=== PATIENT | female | born 1965 | race Caucasian/White ===

== ENCOUNTER → 2016-05-14 | Outpatient (CLI) | payer MEDICARE, BC ==
[~2016-05-14] MED LIST: ACET-818 PO; AMLO-147 PO; ATEN-51 PO; CHOL100062 PO; CLON-379 PO; LANT3I SC; NEPH PO; NOVO3I SC; PRA20 PO
--- NOTE | 2016-05-14 10:09 | RADRPT ---
PROCEDURE: XR Chest. CLINICAL INDICATION: Cough and shortness of breath. TECHNIQUE: Two views. Frontal and lateral. COMPARISON: 02/15/2016. FINDINGS: There is a tunneled left internal jugular vein dialysis catheter with the tip in the mid superior ve na cava. The lungs are clear. The heart size is normal. There is no pleural effusion. There is no pneumothorax. IMPRESSION: 1. Tunneled left internal jugular vein dialysis catheter. 2. Clear lungs. RPTAT: QQ .Frandy Henry MD, MD Date Time Electronically viewed and signed by .Frandy Henry MD, MD on 05/14/2016 10:08 .R/
== END | disposition home or self-care (01) ==
LOC: RAD 09:31
PROVIDERS: ATTEND Internal Medicine Nephrology
DX: R06.02 Shortness of breath (principal); R05 Cough
CPT/HCPCS: 71020

== ENCOUNTER 2016-07-17 05:22 | Day surgery (SDC) | payer MEDICARE, BC ==
[2016-07-09 10:00] LABS: ADD SCAN DIFF NO
[2016-07-09 10:13] LABS: BASOPHIL # 0.1 10^3/ul (0.0-0.1); BASOPHILS % 0.5 % (0.0-2.0); EOSINOPHILS # 0.3 10^3/ul (0.0-0.5); EOSINOPHILS % 2.6 % (0.0-7.0); HEMOGLOBIN 10.5 g/dl (12.0-16.0); LYMPHOCYTES # 3.3 10^3/ul (0.8-2.9); LYMPHOCYTES % 28.6 % (15.0-51.0); MEAN CORPUSCULAR HEMOGLOBIN 32.1 pg (29.0-33.0); MEAN CORPUSCULAR VOLUME 91.7 fl (82.0-101.0); MEAN PLATELET VOLUME 12.6 fl (7.4-10.4); MONOCYTE # 0.9 10^3/ul (0.3-0.9); MONOCYTES % 7.4 % (0.0-11.0); NEUTROPHIL # 7.1 10^3/ul (1.6-7.5); NEUTROPHILS % 60.5 % (39.0-77.0); PLATELET COUNT 222 10^3/UL (140-415); RED BLOOD COUNT 3.27 10^6/ul (4.20-5.40); RED CELL DISTRIBUTION WIDTH 12.6 % (11.5-14.5); WHITE BLOOD COUNT 11.7 10^3/ul (4.8-10.8)
[2016-07-09 10:22] LABS: INR 0.86; POTASSIUM 5.8 mmol/L (3.5-5.1); PROTIME 11.7 Sec (12.2-14.2); PT RATIO 0.9
[2016-07-09 10:47] LABS: CALCIUM 10.2 mg/dl (8.4-10.2); CREATININE 8.98 mg/dl (0.44-1.00)
--- NOTE | 2016-07-09 10:59 | RADRPT ---
PROCEDURE: XR Chest. CLINICAL INDICATION: Preop chest x-ray 11/1952 year-old female. TECHNIQUE: Single frontal view of the chest was obtained COMPARISON: Chest x-ray 05/14/2016. FINDINGS: The soft tissues are normal. A hemodialysis catheter remains in place with its tip in the superior vena cava. The heart, cardiomediastinal silhouette, pulmonary vasculature and hilar structures are normal. There is a left-sided aorta. The lungs are clear. The costophrenic angles are normal. IMPRESSION: 1. Stable chest x-ray with no evidence of active cardiopulmonary disease. 2. Hemodialysis catheter with its tip in the superior vena cava. RPTAT:AAJJ Physician Adrienne Date Time Electronically viewed and signed by Tej Giraldo Physician on 07/09/2016 10:59 JM/
--- NOTE | 2016-07-11 19:11 | RADRPT ---
Vent Rate: 65 bpm RR Interval: 0 msec WV Interval: 172 msec QRS Duration: 84 msec QT Interval: 450 msec QTC Interval: 468 msec P-R-T Watson: 36 - 9 - 70 degrees Normal sinus rhythm Cannot rule out Anterior infarct , age undetermined Abnormal ECG Electronically Signed By: Gerald Richardson [id number]
[2016-07-16 10:01] VITALS: BMI 31.4
[~2016-07-17] VITALS: Ht 157.5 cm; Wt 75.1 kg
[2016-07-17] VITALS (10 sets, daily range): BP systolic 93–142; BP diastolic 45–71; PULSE 62–68; RESP 8–20; Ht 157.5 cm; Wt 75.1 kg
[~2016-07-17 05:22] MED LIST changes: -ACET-818 PO; +ACET325T33 PO; +CALC300T4 PO; +CALC600T11 PO; +CYCL-319 PO; +LORA5TAB4 PO; -NEPH PO
[2016-07-17] MEDS ORDERED: VANCOMYCIN 1 GM (PMX) 250 ML ONE (06:08)
[2016-07-17] MEDS ORDERED: INSULIN REGULAR, HUMAN 100 UNIT/1 ML 3ML VIAL IV ONE (06:25)
[2016-07-17] MEDS ORDERED: VANCOMYCIN 1 GM in NS 250 ML IVPB SCH (06:30)
[2016-07-17] MEDS ORDERED: GELATIN SIZE 100 SPONGE ONE (06:45)
[2016-07-17] MEDS ORDERED: LIDOCAINE 1% (STERILE-PAK) 30 ML INJ ONE (06:45)
[2016-07-17] MEDS ORDERED: THROMBIN 5000 UNIT VIAL ONE (06:46)
[2016-07-17] MEDS ORDERED: HEPARIN 1000 UNITS/ML 10 ML INJ ONE (06:46)
[2016-07-17 07:11] LABS: INR 0.86; PROTIME 11.7 Sec (12.2-14.2); PT RATIO 0.9
[2016-07-17 07:12] LABS: PARTIAL THROMBOPLASTIN TIME 26.1 Sec (25.0-35.0)
[2016-07-17] MEDS ORDERED: MIDAZOLAM 1 MG/ML 2 ML INJ ONE (07:21)
[2016-07-17] MEDS ORDERED: CEFAZOLIN 1 GM INJ ONE (07:21)
[2016-07-17] MEDS ORDERED: PROPOFOL 20 ML ONE ×3 (07:21→09:36)
[2016-07-17] MEDS ORDERED: FENTAnyl 50 MCG/ML VIAL ONE (07:21)
[2016-07-17] MEDS ORDERED: ROPIVACAINE 0.5 % 30 ML VIAL ONE (07:23)
[2016-07-17] MEDS ORDERED: ONDANSETRON 4 MG INJ IV PRN (09:00)
[2016-07-17] MEDS ORDERED: morphine (1 MG/ML) 10ML SYRINGE IV PRN ×3 (09:00)
[2016-07-17] MEDS ORDERED: EPHEDrine SULFATE 50 MG/5 ML SYG IV PRN (09:00)
[2016-07-17] MEDS ORDERED: LABETALOL HCL 20MG INJ IV PRN (09:00)
[2016-07-17] MEDS ORDERED: DIPHENHYDRAMINE 50 MG INJ IV PRN (09:00)
[2016-07-17] MEDS ORDERED: hydrALAzine 20 MG INJ IV PRN (09:00)
[2016-07-17] MEDS ORDERED: MEPERIDINE 25 MG INJ IV PRN (09:00)
[2016-07-17] MEDS ORDERED: HYDROmorphONE (0.2 MG/ML) 10ML SYG IV PRN ×3 (09:00)
[2016-07-17] MEDS ORDERED: POLYMYXIN/BACITRACIN 1L IRRIG IRR ONE (09:15)
[2016-07-17] MEDS ORDERED: HEMOSTATIC MATRIX/ THROMBIN 1 EA SYG ZFS ONE (09:15)
[2016-07-17] MEDS ORDERED: GELATIN SIZE 100 SPONGE TOP ONE (09:16)
[2016-07-17] MEDS ORDERED: ONDANSETRON 4 MG INJ ONE (10:15)
[2016-07-17] MEDS ORDERED: METOCLOPRAMIDE 10 MG INJ ONE (10:15)
--- NOTE | 2016-07-17 10:58 | PDOCDIS ---
Discharge Instructions DIAGNOSIS Discharge Diagnosis: ESRD CONDITION Patient Condition: Good HOME CARE INSTRUCTIONS: Special Diet: RENAL DIET ACTIVITY: Activity Restrictions: Slowly Increase Activity Rest between Activity Avoid heavy lifting Do not Drive Do not operate Machinery Do not operate Power Tool Avoid Heavy Housework Keep Limb Elevated FOLLOW UP/APPOINTMENTS Appointments FOLLOWUP WITH ANT[facility] IN 2 WEEKS AT [facility] MAY REMOVE DRESSING IN 72HOURS AND SHOWER AT THAT TIME. NO BATHING OR SWIMMING HAVE HOME HEALTH [facility] REMEDY SEE PATIENT IN TWO TO THREE DAYS [phone] MAY REMOVE THE ARM SLING IN 8-10 HOURS WHEN PATIENT CAN FEEL HER FINGERTIPS AND MOVE THEM KAVIN BERMAN MD Jul 17, 2016 10:58
--- NOTE | 2016-07-17 11:24 | HPN ---
Date/Time of Note Date/Time of Note DATE: 07/17/16 TIME: 11:24 Interval H&P Admission Note Pt. seen H&P reviewed: No system changes KAVIN BERMAN MD Jul 17, 2016 11:24
--- NOTE | 2016-07-17 11:33 | OPR ---
DATE OF OPERATION: 07/17/2016 SURGEON: Kavin Kramer MD PREOPERATIVE DIAGNOSIS: End-stage renal disease. POSTOPERATIVE DIAGNOSIS: End-stage renal disease. PROCEDURE: Creation of a left arm brachio-axillary arteriovenous xenograft (cow carotid - model [id number] [id number], 7 mm, 48 cm) creation. ANESTHESIA: Local and block. COMPLICATIONS: None. ESTIMATED BLOOD LOSS: 50 mL. TRANSFUSIONS: None. SPECIMEN: None. Heparin 3000 units. INDICATIONS: This is a 50-year-old female with end-stage renal disease with history of multiple lef t arm AV fistula creations. The patient currently has a left chest wall catheter. The risks and be nefits of the procedure were discussed with the patient and not limited to , [place] and pneumonia, stroke, infection, thrombosis of the graft and arterial access, revisions of AV fistula, steal syndr ome, and the limb loss, nerve injury and she elected to undergo surgical intervention. DESCRIPTION OF PROCEDURE: The patient was brought into the operating room table and placed in supin e position. The arms were placed in 90 degrees. The normal bony prominences were padded. Anesthes ia team had placed appropriate lines and a block was provided. Time out was performed. Appropriate site was marked and confirmed. The patient's left upper extremity was then prepped and draped in t he usual standard sterile fashion. Preoperative antibiotics were given prior to the skin incision. A 5 cm skin incision was then performed over the medial aspect of the upper arm towards axilla. The incision was deepened through the subcutaneous tissue and fat. The brachial and axillary vein were then identified and circumferentially dissected and encircled with a vessel loop. A 4 cm segment o f the axillary vein was circumferentially dissected. A 3 cm longitudinal incision was then performe d above the antecubital fossa. The aponeurosis of the biceps muscle was incised and the brachial ar yandy was palpated and its location was determined. The soft tissues over the brachial artery were t hen incised and the brachial artery was circumferentially dissected and encircled with a vessel loop . A 3 cm segment of the brachial artery was then circumferentially dissected. The curved [place] t unneler was then used to create a subcutaneous tunnel connecting the incisions and antecubital fossa to the incision of the axilla. The tunnel was created in the anterolateral aspect of the upper arm to facility puncture site for dialysis. The patient was then given 3000 units of heparin intraveno usly. Yasargil clamps were then applied on the brachial artery and a 6 mm incision was then perform ed in the anterior wall of the brachial artery. The end of the xenograft was tapered on the back ta ble prior to our clamping to measure 4 mm. Therefore, we tapered the graft to a 4/7 xenograft desig n. At this point, we performed an anastomosis using a 6-0 Prolene running suture. The forward and backbleeding from the brachial artery was then performed. Anastomosis was then irrigated with hepar inized saline solution. The sutures were then tied and the anastomosis was checked for hemostasis w hich was adequate. Flow was then allowed to resume through the brachial artery. The xenograft was then introduced in the tunnel distended, avoiding any kinks and twists. Attention was then directed towards the axillary vein. The axillary vein was then controlled with the Yasargil clamps and a 1 cm incision was then created in the vein. The xenograft was then measured to length and was transec rere in an oblique fashion to match the size of the venotomy. Anastomosis was then created between t he end of the PTFE graft and the venotomy using a 5-0 Prolene in running suture. At the completion of the anastomosis, back bleeding from the venous side and forward bleeding from the graft were perf ormed. The suture was then tied and anastomosis was checked for hemostasis which was adequate. Khadar w was then allowed in the arteriovenous graft. There was evidence of excellent thrill in the graft and adequate dopplerable signals were identified. There was also evidence of palpable pulses in the radial artery at the wrist. The suture lines were then checked for hemostasis which was adequate. Using a 3-0 Vicryl suture, the dermal layer was closed in interrupted fashion. The skin ana we re then applied. The patient tolerated procedure well and was taken to the postanesthesia care unit in stable condition. All instrument, sponges, needles, catheters were correct x2. Dictated By: KAVIN BOSS/DANISH Conf#: [id number] DID#: [id number]
== END 2016-07-17 12:35 | disposition home or self-care (01) ==
LOC: SDS 05:22
PROVIDERS: ATTEND Student in an Organized Health Care Education/Training Program
DX: I12.0 Hypertensive chronic kidney disease with stage 5 chronic kidney disease or end stage renal disease (principal); N18.6 End stage renal disease; E11.9 Type 2 diabetes mellitus without complications
CPT/HCPCS: 36830; 71010; 80048; 82962; 84132; 84703; 85025; 85610; 85730; 93005; J1170; J1644; J2250; J2795; J3010; J3370; J0690; J2405; J2765

== ENCOUNTER 2017-03-20 16:19 | Emergency (ER) | payer MEDICARE, BC ==
[~2017-03-20] VITALS: Ht 157.5 cm; Wt 77.0 kg
[~2017-03-20 16:19] MED LIST changes: -CALC600T11 PO; +CALC600T24 PO; -PRA20 PO; +PRAV20TA2 PO
[2017-03-20 16:24] VITALS: Ht 157.5 cm; Wt 77.0 kg
--- NOTE | 2017-03-20 17:10 | ERD ---
ER Documentation Chief Complaint Chief Complaint RIGHT GREAT TOE REDNESS TODAY, CALLUS X 2 WEEKS, DIABETIC PATIENT HPI This 51 yr DM female with diabetic neuropathy lateral feet, loss of vision in right eye,, present to ED for evaluation of right foot , great toe inner accept of toe with thick black blister , symptoms x 2 weeks, BS this AM 140, last saw internal communications writer 6 months ago , has an appointment in March, pt has ESRF, HD //Sat. left upper AV fistula, ROS All systems reviewed and are negative except as per history of present illness. Medications Home Meds Active Scripts Clindamycin Hcl* (Clindamycin Hcl*) 300 Mg Capsule, 300 MG PO QID for ulcer for 10 Days, CAP Prov:DONGNGA 03/20/17 Insulin Glargine* (Lantus*) 100 Unit/Ml Soln, 20 UNIT SC QAM for 28 Days Prov:DANTE COTTON MD 02/15/16 Insulin Aspart* (Novolog Insulin Pen*) 100 Unit/Ml Soln, 6 UNIT SC WITH MEALS for 28 Days Prov:DANTE COTTON MD 02/15/16 Clonidine Hcl* (Clonidine Hcl*) 0.1 Mg Tab, 0.1 MG PO TID for 270 Days Prov:CHAZ HERNANDEZ MD 07/08/15 Reported Medications Insulin Glargine* (Lantus*) 100 Unit/Ml Soln, 30 UNIT SC HS, #1 VIAL 07/16/16 Insulin Glargine* (Lantus*) 100 Unit/Ml Soln, 45 UNIT SC AC BREAKFAST, #1 VIAL 07/16/16 Acetaminophen* (Tylenol*) 325 Mg Tablet, 650 MG PO Q4H Y for MILD PAIN LEVEL 1-3 , TAB 07/16/16 Loratadine* (Claritin*) 5 Mg Tab.rapdis, 5 MG PO DAILY, #30 TAB 07/16/16 Calcium Carbonate* (Tums X-Str) 300 Mg Tab.chew, 3 TAB PO AC MEALS, TAB.CHEW 07/16/16 Atenolol* (Atenolol*) 25 Mg Tablet, 25 MG PO DAILY, #30 TAB 07/16/16 Cholecalciferol* (Vitamin D3*) 1,000 Unit Tablet, 2000 UNIT PO DAILY, TAB 07/16/16 Calcium Carbonate* (Calcium Carbonate*) 600 MG Ca Tab, 600 MG PO DAILY, TAB 07/16/16 Cyclobenzaprine Hcl* (Cyclobenzaprine Hcl*) 10 Mg Tablet, 10 MG PO Q8 Y for MUSCLE SPASMS, #60 TAB 07/16/16 Amlodipine Besylate* (Amlodipine Besylate*) 10 Mg Tablet, 10 MG PO DAILY, #30 TAB 02/11/16 Atenolol* (Atenolol*) 25 Mg Tablet, 25 MG PO BID, TAB 03/02/14 Cholecalciferol* (Vitamin D3*) 1,000 Unit Tablet, 1000 UNIT PO DAILY, TAB 03/02/14 Pravastatin Sodium (Pravastatin Sodium) 20 Mg Tablet, 20 MG PO DAILY 07/15/12 Allergies Allergies: Coded Allergies: No Known Allergy (Unverified , 02/11/16) PMhx/Soc History of Surgery: Yes (CSECTION, AVF, RIGHT EYE) Anesthesia Reaction: No Hx Neurological Disorder: No Hx Respiratory Disorders: No Hx Cardiac Disorders: Yes (HTN) Hx Psychiatric Problems: No Hx Miscellaneous Medical Probl: No Hx Alcohol Use: No Hx Substance Use: No Hx Tobacco Use: No Physical Exam Vitals Vital Signs Date Time Temp Pulse Resp B/P Pulse Ox O2 Delivery O2 Flow Rate FiO2 03/20/17 16:24 98.7 74 18 166/74 99 Vitals stable, triage notes reviewed, blood pressure is noted to be 166/74 Physical Exam Const: Well-nourished 51-year-old female with multiple comorbidities, no acute distress Head: Atraumatic Eyes: Normal Conjunctiva, patient is blind in right eye, ENT: Neck: Resp: Clear to auscultation bilaterally no rales wheezes or rhonchi Cardio: Regular rate and rhythm, no murmurs, left upper arm presents with AV fistula, good bruit and thrill, distal from fistula is old hemodialysis site, skin intact, no edema or erythema. Abd: Skin: Right foot great toe presents with black thick ulcer inner aspect, ulcer is oval-shaped, 2 cm x 1 cm, patient has abnormal sensation, reports diabetic neuropathy Back: Ext: Neur: Awake and alert Psych: Normal Mood and Affect Result Diagram: 03/20/17 4491 03/20/17 4335 Results 24 hrs Laboratory Tests Test 03/20/17 17:53 11/22/17 18:35 Bedside Glucose 194mg/dL White Blood Count 12.110^3/ul Red Blood Count 3.3910^6/ul Hemoglobin 10.9g/dl Hematocrit 32.6% Mean Corpuscular Volume 96.2fl Mean Corpuscular Hemoglobin 32.2pg Mean Corpuscular Hemoglobin Concent 33.4g/dl Red Cell Distribution Width 13.0% Platelet Count 64271^3/UL Mean Platelet Volume 11.5fl Neutrophils % 71.1% Lymphocytes % 20.4% Monocytes % 6.6% Eosinophils % 0.8% Basophils % 0.4% Nucleated Red Blood Cells % 0.0/100WBC Neutrophils # 8.610^3/ul Lymphocytes # 2.510^3/ul Monocytes # 0.810^3/ul Eosinophils # 0.110^3/ul Basophils # 0.110^3/ul Nucleated Red Blood Cells # 0.010^3/ul Sodium Level 135mmol/L Potassium Level 5.3mmol/L Chloride Level 91mmol/L Carbon Dioxide Level 25mmol/L Anion Gap 24 Blood Urea Nitrogen 50mg/dl Creatinine 8.49mg/dl Glucose Level 200mg/dl Lactic Acid Level 1.0mmol/L Calcium Level 9.0mg/dl Total Bilirubin 0.0mg/dl Direct Bilirubin 0.00mg/dl Indirect Bilirubin 0.0mg/dl Aspartate Amino Transf (AST/SGOT) 26IU/L Alanine Aminotransferase (ALT/SGPT) 27IU/L Alkaline Phosphatase 179IU/L Total Protein 8.5g/dl Albumin 4.5g/dl Globulin 4.00g/dl Albumin/Globulin Ratio 1.12 Interpretation text CBC shows no evidence of hemorrhage WBC elevated at 12.1. Chemistry shows no evidence of significant electrolyte abnormalities, capillary blood glucose is 194, serum blood glucose is 200. Patient has abnormally high BUN and creatinine, patient has end-stage renal failure this is not a significant finding. Liver function tests shows no evidence of acute biliary or hepatic dysfunctionlpathy Lipase shows no evidence of acute pancreatitis Procedures/MDM PROCEDURE: X-ray right foot CLINICAL INDICATION: Soft tissue lesion at the medial aspect of the distal right great toe. TECHNIQUE: 3 views right foot. COMPARISON: None FINDINGS: Soft tissue lesion over the medial aspect of the distal right great toe. No definite plain film evidence of osteomyelitis. Recommend MRI examination for more sensitive and specific evaluation. Question mild erosion of gout at the medial aspect of the head of the first proximal phalanx. Remote fracture at the proximal metaphysis of the fifth proximal phalanx. Degenerative changes at the first tarsometatarsal joint, with dorsal osteophyte. IMPRESSION: No plain film evidence of osteomyelitis in region of soft tissue lesion, and recommend MRI correlation. Electronically viewed and signed by Tessa Gan Physician on 03/20/2017 18:12 This 51-year-old female presents to emergency department for evaluation of a diabetic ulcer on her right great toe, patient reports symptoms 2 weeks, denies pain history of neuropathy, patient also is end-stage renal failure on hemodialysis, states she sees her internal communications writer every 6 months, she will see her physician in March. Patient reports that glucose is moderately controlled. Fingerstick ordered, capillary blood glucose is 194, I do not feel it is necessary to start IV fluids, ordered end-stage renal failure. Patient is anuric, a urinalysis is not possible. Plan to x-ray patient's right foot rule out osteomyelitis, routine labs to evaluate infection, sepsis, DKA.. EEG positive for elevated WBCs, BUN and creatinine elevated, patient is end- stage renal failure this is not a significant finding, diabetic on medication fingerstick 194, serology is 200. X-ray of right foot shows no evidence of osteomyelitis. Plan to treat patient with clindamycin,, no adjustment needed for hemodialysis or peritoneal dialysis. Patient will receive 300 mg p.o. now. DC home with clindamycin 300 mg 4 times daily 10 days, patient will be sent to amputation center evaluation and treatment. Take medication as prescribed, continue all routine medication prescribed by other providers. Follow-up with primary physician this week. Patient is stable with no new complaints during ER course, clinically there is no current evidence to suggest meningitis, sepsis , cellulitis, osteomyelitis, compartment syndrome, necrotizing fasciitis or any other emergent condition appearing to require further evaluation or hospitalization. I feel the patient is stable for discharge at this time. I have discussed results, examination findings, the treatment plan with the patient and family present prior to discharge. Indications for emergent reevaluation, side effects of medication were also discussed. All questions were answered. Patient verbalizes understanding and agrees with plan of care. Departure Diagnosis: Primary Impression: Diabetic foot ulcer Diabetic foot ulcer location: toe Diabetes mellitus type: type 2 Laterality : right Non-pressure ulcer stage: with necrosis of muscle Qualified Code: E11.621 - Diabetic ulcer of toe of right foot associated with type 2 diabetes mellitus, with necrosis of muscle Condition: Good Patient Instructions: Diabetic Foot Care, Diabetic Foot Ulcers Referrals: [facility] Additional Instructions: Thank you for for coming to [facility] for your care today. Please ask your nurse or provider if you have questions about your care today and do not leave until all your questions have been answered. Please use any medications given as directed and follow-up with your doctor (or the doctor you were referred to) in the next 2-3 days. If you do not have a primary care doctor you may [place] [facility] [place] You may also use motrin and tylenol as needed for fever and/or pain unless instructed otherwise by your provider or nurse. Indications for more urgent follow-up have been discussed, but you may return to the Emergency Department at ANY time for any worrisome or worsening symptoms. If you have abdominal pain, please know that no test or exam you received is perfect and you should follow up within 8 hours for continued pain. If you had any imaging studies today, such as an X-Ray or CT Scan, these studies will be reviewed later by a radiologist. You will be called if there are important findings that were not identified today, so make sure the contact information you provided at registration is correct. If you received any narcotic pain control medicine today, such as Vicodin, Morphine or Dilaudid, your coordination and judgment may be affected for a number of hours. Please do not drive or operate heavy machinery, and you may want someone to assist you at home. If you were given a prescription for narcotic medication, be aware that it is very addictive- use sparingly and only if necessary. NAG UMANA Mar 20, 2017 17:10
--- NOTE | 2017-03-20 18:12 | RADRPT ---
PROCEDURE: X-ray right foot CLINICAL INDICATION: Soft tissue lesion at the medial aspect of the distal right great toe. TECHNIQUE: 3 views right foot. COMPARISON: None FINDINGS: Soft tissue lesion over the medial aspect of the distal right great toe. No definite plain film evid ence of osteomyelitis. Recommend MRI examination for more sensitive and specific evaluation. Questio n mild erosion of gout at the medial aspect of the head of the first proximal phalanx. Remote fractu re at the proximal metaphysis of the fifth proximal phalanx. Degenerative changes at the first tarso metatarsal joint, with dorsal osteophyte. IMPRESSION: No plain film evidence of osteomyelitis in region of soft tissue lesion, and recommend MRI correlati on. RPTAT: [facility]U Physician Magdaleno Date Time Electronically viewed and signed by Physician Magdaleno on 03/20/2017 18:12 RS/
[2017-03-20 18:57] LABS: BASOPHIL # 0.1 10^3/ul (0.0-0.1); BASOPHILS % 0.4 % (0.0-2.0); EOSINOPHILS # 0.1 10^3/ul (0.0-0.5); EOSINOPHILS % 0.8 % (0.0-7.0); HEMATOCRIT 32.6 % (37.0-47.0); HEMOGLOBIN 10.9 g/dl (12.0-16.0); LYMPHOCYTES # 2.5 10^3/ul (0.8-2.9); LYMPHOCYTES % 20.4 % (15.0-51.0); MEAN CORPUSCULAR HEMOGLOBIN 32.2 pg (29.0-33.0); MEAN CORPUSCULAR HGB CONC 33.4 g/dl (32.0-37.0); MEAN CORPUSCULAR VOLUME 96.2 fl (82.0-101.0); MEAN PLATELET VOLUME 11.5 fl (7.4-10.4); MONOCYTE # 0.8 10^3/ul (0.3-0.9); MONOCYTES % 6.6 % (0.0-11.0); NEUTROPHIL # 8.6 10^3/ul (1.6-7.5); NEUTROPHILS % 71.1 % (39.0-77.0); PLATELET COUNT 256 10^3/UL (140-415); RED BLOOD COUNT 3.39 10^6/ul (4.20-5.40); WHITE BLOOD COUNT 12.1 10^3/ul (4.8-10.8)
[2017-03-20 19:17] LABS: ALBUMIN 4.5 g/dl (3.3-4.9); ALBUMIN/GLOBULIN RATIO 1.12; CREATININE 8.49 mg/dl (0.44-1.00); POTASSIUM 5.3 mmol/L (3.5-5.1); TOTAL PROTEIN 8.5 g/dl (6.1-8.1)
[2017-03-20] MEDS ORDERED: CLIN-73 PO (20:16)
[2017-03-20] MEDS ORDERED: CLINDAMYCIN 300 MG CAP PO ONE (20:30)
[2017-03-20 20:38] VITALS: BP 142/70; PULSE 79; RESP 18; TEMP 98.6
== END 2017-03-20 20:39 | disposition home or self-care (01) ==
LOC: FTE 16:19
DX: E11.621 Type 2 diabetes mellitus with foot ulcer (principal); L97.519 Non-pressure chronic ulcer of other part of right foot with unspecified severity; I10 Essential (primary) hypertension; Z79.4 Long term (current) use of insulin
CPT/HCPCS: 36415; 73630; 80053; 82962; 83605; 85025